=== PATIENT | female | born 1995 | race Two or more races ===

== ENCOUNTER 2022-02-07 13:51 | Emergency (ER) | payer OTHER ==
[~2022-02-07] VITALS: Ht 172.7 cm; Wt 88.0 kg
== END 2022-02-07 17:59 | disposition home or self-care (01) ==
LOC: ER 13:51
DX: S92.411A Displaced fracture of proximal phalanx of right great toe, initial encounter for closed fracture (principal); W22.8XXA Striking against or struck by other objects, initial encounter; Y93.89 Activity, other specified; Y92.018 Other place in single-family (private) house as the place of occurrence of the external cause